=== PATIENT | female | born 1975 | race Caucasian/White ===

== ENCOUNTER 2024-02-28 06:21 | Day surgery (SDC) | payer OTHER ==
[~2024-02-28] VITALS: Ht 157.5 cm; Wt 86.2 kg
[2024-02-28 06:54] LABS: BASOPHILS % (AUTO) 0.5 % (0.0-2.0); EOSINOPHILS # (AUTO) 0.1 K/uL (0-0.4); EOSINOPHILS % (AUTO) 1.2 % (0.0-4.0); HEMATOCRIT 40.9 % (36-48); HEMOGLOBIN 13.4 g/dL (12.0-16.0); LYMPHOCYTES # (AUTO) 1.3 K/uL (2.5-16.5); LYMPHOCYTES % (AUTO) 15.3 % (20.5-51.1); MEAN CORPUSCULAR HEMOGLOBIN 26 pg (27-31); MEAN CORPUSCULAR HGB CONC 33 g/dL (33-37); MEAN CORPUSCULAR VOLUME 79.4 fL (80-94); MONOCYTES # (AUTO) 0.4 K/uL (0.8-1.0); MONOCYTES % (AUTO) 4.9 % (1.7-9.3); NEUTROPHILS # (AUTO) 6.8 K/uL (1.8-7.7); NEUTROPHILS % (AUTO) 78.1 % (42.2-75.2); PLATELET COUNT (AUTO) 232 K/uL (140-450); RED BLOOD CELL COUNT(AUTO) 5.16 MIL/uL (4.20-5.40); RED CELL DISTRIBUTION WIDTH 18.5 % (11.6-13.7); WHITE BLOOD COUNT (AUTO) 8.7 K/uL (4.8-10.8)
[2024-02-28] MEDS ORDERED: LACTATED RINGERS 1,000 ML IV SCH (07:15)
[2024-02-28] MEDS ORDERED: MEPERIDINE 25 MG/ML SYR IVP PRN (07:15)
[2024-02-28] MEDS ORDERED: ONDANSETRON 4 MG/2 ML VIAL IVP PRN (07:15)
[2024-02-28 07:21] LABS: ALBUMIN 3.7 g/dL (3.4-5.0); ANION GAP 13.5 (8-16); CALCIUM 8.7 mg/dL (8.5-10.1); CARBON DIOXIDE 25.2 mmol/L (21-32); CREATININE 0.8 mg/dL (0.6-1.3); POTASSIUM 3.7 mmol/L (3.5-5.1); TOTAL BILIRUBIN 0.4 mg/dL (0.0-1.0)
[2024-02-28] MEDS ORDERED: fentaNYL citrate 0.05 MG/ML VIAL ONE (07:21)
[2024-02-28] MEDS ORDERED: MIDAZOLAM 2 MG/2 ML VIAL ONE (07:21)
[2024-02-28] MEDS ORDERED: SUCCINYLCHOLINE CHLORIDE 200 MG/10 ML VIAL IVP ONE (07:22)
[2024-02-28] MEDS ORDERED: ROCURONIUM 50 MG/5 ML VIAL IV ONE ×2 (07:22→09:46)
[2024-02-28] MEDS ORDERED: ONDANSETRON 4 MG/2 ML VIAL ONE (07:22)
[2024-02-28] MEDS ORDERED: PROPOFOL 200 MG/20 ML VIAL IV ONE (07:22)
[2024-02-28] MEDS ORDERED: DEXAMETHASONE 4 MG/ML VIAL ONE (07:23)
[2024-02-28] MEDS ORDERED: HYDROCORTISONE NA SUCC 100 MG/2 ML VIAL ONE (07:25)
[2024-02-28] MEDS ORDERED: SEVOFLURANE 250 ML BTL INH ONE (07:32)
[2024-02-28] MEDS: BUPIVACAINE-MPF 0.25% 30 ML VIAL INJ ONE (08:04)
[2024-02-28] MEDS: LIDOCAINE/EPI 1% 1:100000 20 ML VIAL INJ ONE (08:04)
[2024-02-28] MEDS ORDERED: BUPIVACAINE MPF 0.25% 10 ML VIAL INJ ONE (08:07)
[2024-02-28] MEDS: ceFAZolin 2,000 MG VIAL ONE (08:31)
[2024-02-28] MEDS ORDERED: MEDS-TO-BEDS MC SCH (09:00)
[2024-02-28] MEDS ORDERED: SUGAMMADEX SODIUM 200 MG/2 ML VIAL IV ONE (09:47)
[2024-02-28] MEDS ORDERED: ACETAMINOPHEN 100 ML IV ONE (10:05)
[2024-02-28] MEDS ORDERED: HYDROmorphone PFS 2 MG/ML SYR ONE (10:05)
[2024-02-28] MEDS: HYDROmorphone 1 MG/ML AMP IVP PRN (10:12)
[2024-02-28] MEDS ORDERED: ACETAMINOPHEN 100 ML IV PRN ×2 (10:30→10:45)
[2024-02-28] MEDS: METOCLOPRAMIDE 10 MG/2 ML INJ VIAL ONE (10:32)
[2024-02-28] MEDS: ACETAMINOPHEN 100 ML IV ONE (10:36)
== END 2024-02-28 13:32 | disposition home or self-care (01) ==
LOC: MMU 06:21 → MOR 06:21 → UNDOADMIN 06:21 → MMU 06:21 → EDSTATUS 07:30 → MOR 13:32
PROVIDERS: ATTEND Obstetrics & Gynecology
DX: N83.201 Unspecified ovarian cyst, right side (principal); D25.9 Leiomyoma of uterus, unspecified; M19.90 Unspecified osteoarthritis, unspecified site; E03.9 Hypothyroidism, unspecified; Z98.890 Other specified postprocedural states
CPT/HCPCS: 36415; 58552; 80053; 85025; 86886; 86900; 86901; 88307; 93005; J0330; J1100; J1170; J1720; J2001; J2250; J2405; J2704; J2765; J3010; J3490; J7030